=== PATIENT | male | born 1985 | race Caucasian/White ===

== ENCOUNTER 2025-09-20 23:34 | Emergency (ER) | payer MEDICAID, OTHER ==
[~2025-09-20] VITALS: Ht 165.1 cm; Wt 81.1 kg
[2025-09-21 02:41] VITALS: BP 128/81; PULSE 66; RESP 18; TEMP 97.5; O2SAT 99
[2025-09-21] MEDS: ONDANSETRON HCL 4 MG/2 ML VIAL IM ONE (02:45)
--- NOTE | 2025-09-21 03:01 | ED.PDOC ---
GI ASSESSMENT HPI Comments Pt presents with complaint of vertigo, nausea, and vomiting x 2 days. Chief Complaint: Nausea/Vomiting Time Seen by MD: 23:47 Reviewed Notes: Nurses Notes, Medications, Allergies Allergies: Coded Allergies: No Known Drug Allergy (Verified Allergy, Unknown, 09/20/25) Information Source: Patient Mode of Arrival: Ambulatory Past Medical History PAST MEDICAL HISTORY: Denies Surgical History: Denies all surgeries Family History Family History: Unknown Social History Smoker: Non-Smoker Alcohol: Denies ETOH Use Drugs: Denies Drug Use All Other Systems: Reviewed and Negative (SEE HPI) Physical Exam General Appearance: No Apparent Distress, Normal HEENT: Normal ENT Inspection, Pharynx Normal, TMs Normal Neck: Full Range of Motion, Non-Tender Respiratory: Lungs Clear, No Respiratory Distress, Normal Breath Sounds Cardiovascular: No Edema, No JVD, No Murmur, No Gallop, Normal Peripheral Pul ses, Regular Rate/Rhythm Breast Exam: Deferred Gastrointestinal: No Organomegaly, Non Tender, No Pulsatile Mass, Normal Bowel Sounds, Soft Genitalia: Deferred Pelvic: Deferred Rectal: Deferred Extremities: Normal range of motion, Non-tender, No pedal edema Musculoskeletal : Apperance: Normal Neurologic: Alert, No Motor Deficits, Normal Affect, Normal Mood, No Sensory Deficits Cerebellar Function: Normal Reflexes: Normal Skin: Dry, Normal Color, Warm Lymphatic: No Adenopathy Was a procedure done? Was a procedure done?: No GI differential Dx Differential Diagnosis: Cholecystitis, Constipation, Diverticular disease, Gastroenteritis, Dehydration, Diabetes/ DKA, Electrolyte Imbalance, Food Poisoning, Bacterial, Parasitic, Viral X-Ray, Labs, Meds, VS Vital Signs Date Time Temp Pulse Resp B/P (MAP) Pulse Ox O2 Delivery O2 Flow Rate FiO2 09/21/25 02:41 97.5 66 18 128/81 (97) 99 97.5 09/21/25 02:41 66 18 99 Room Air 09/20/25 23:36 97.6 65 20 125/82 100 97.6 Current Medications Medications (Trade) Dose Ordered Sig/Daniel Route Start Time Stop Time Status Last Admin Ondansetron HCl (Zofran) 4 mg ONCE ONCE IM 09/21/25 00:00 09/21/25 00:01 DC 09/21/25 02:45 X-Ray, Labs, Meds, VS Comment Patient given Zofran 4 mg IM patient requesting turkey sandwich in fluids tolerate requesting discharge at this time. Script trial of Zofran advised take medications as prescribed side effects discussed. Follow up with the PCP in 2-3 days as necessary. ER return precautions given patient indicates understanding agrees with discharge plan of care Time of 1ST Reevaluation: 23:47 Reevaluation 1ST: Unchanged Time of 2ND Reevaluation: 03:01 Reevaluation 2ND: Improved Patient Education/Counseling: Diagnosis, Treatment, Need For Follow Up Family Education/Counseling: No Family Present SEPSIS Sepsis Screen Date sepsis recognized/suspect: Sep 20, 2025 Time Sepsis recognized/suspect: 2336 Recent Procedure: No On Antibiotic Therapy: No Respiratory Rate >20: No Heart Rate >90: No Temp<36 C (96.8 F) or >38.3 C: No SBP <90 or MAP <65 mmHG: No New Acute Mental Status Change: No Is the patient on CPAP, BIPAP,: No Vital Signs Date Time Temp Pulse Resp B/P (MAP) Pulse Ox O2 Delivery O2 Flow Rate FiO2 09/21/25 02:41 97.5 66 18 128/81 (97) 99 97.5 09/21/25 02:41 66 18 99 Room Air 09/20/25 23:36 97.6 65 20 125/82 100 97.6 Medications Medications Dose Ordered Sig/Daniel Route Start Time Stop Time Status Last Admin Dose Admin Ondansetron HCl 4 mg ONCE ONCE IM 09/21/25 00:00 09/21/25 00:01 DC 09/21/25 02:45 Departure 1 Departure Time of Disposition: 03:01 Impression: Primary Impression: Nausea alone Disposition: 01 HOME / SELF CARE / HOMELESS Condition: Stable e-Prescriptions Ondansetron Odt 4MG Tab (ZOFRAN PO) 4 Mg Tb 4 MG PO TID PRN for 5 Days, #15 TAB ODT TAB-DISSOLVE IN MOUTH, THEN SWALLOW Prov: GORDO SEBASTIAN 09/21/25 Discharged With: Self Critical Care Note Critical Care Time?: No Stability Stability form required: GORDO Guardado Sep 21, 2025 03:01
[2025-09-21] MEDS ORDERED: ZOFR4T PO (03:02)
== END 2025-09-21 03:06 | disposition home or self-care (01) ==
LOC: ER 23:34
DX: R11.2 Nausea with vomiting, unspecified (principal)
CPT/HCPCS: 96372; 99283; J2405